=== PATIENT | male | born 1985 | race African-American/Black ===

== ENCOUNTER 2022-02-20 13:31 | Emergency (ER) | payer SELFPAY ==
[~2022-02-20] VITALS: Ht 172.7 cm; Wt 74.0 kg
[2022-02-20] MEDS ORDERED: ONDANSETRON HCL 4 MG/2 ML VIAL IVP ONE (15:15)
[2022-02-20] MEDS ORDERED: MORPHINE SULFATE 4 MG/ML SYRINGE IVP ONE (15:15)
[2022-02-20] MEDS ORDERED: ACETAMINOPHEN 500 MG TABLET PO ONE (17:15)
[2022-02-20] MEDS ORDERED: LIDOCAINE 5% TRANSDERMAL PATCH TD ONE (17:15)
[2022-02-20] MEDS ORDERED: KETOROLAC TROMETHAMINE 30 MG/ML VIAL IVP ONE (17:15)
[2022-02-20 17:39] VITALS: BP 129/95
[2022-02-20] MEDS ORDERED: OXYC-38 PO (17:49)
[2022-02-20] MEDS ORDERED: LIDO700A15 TP (17:49)
== END 2022-02-20 18:07 | disposition home or self-care (01) ==
LOC: EMS 13:46
DX: M54.50 Low back pain, unspecified (principal)
CPT/HCPCS: 99284; 72128; 96374; 96375; 72131; J1885; J2270; J2405

== ENCOUNTER 2022-02-21 19:22 | Emergency (ER) | payer SELFPAY ==
[~2022-02-21] VITALS: Ht 177.8 cm; Wt 78.3 kg
[~2022-02-21 19:22] MED LIST: LIDO700A15 TP; OXYC-38 PO
[2022-02-21] MEDS ORDERED: EPINEPHrine 1:10,000 [1 MG/10 ML] SYRINGE IVP ONE ×2 (19:24)
[2022-02-21] MEDS ORDERED: NOREPINEPHRINE 8 MG/D5%-WATER 250 ML IV ONE (20:14)
[2022-02-21 20:25] LABS: MEAN CORPUSCULAR HEMOGLOBIN 23.7 pg (26.0-34.0); MEAN CORPUSCULAR HGB CONC 29.6 G/dL (31.0-37.0); MEAN CORPUSCULAR VOLUME 80 fL (80-100); PLATELET COUNT (AUTO) 238 K/uL (150-450); RED BLOOD CELL COUNT(AUTO) 0.63 MIL/uL (4.50-5.90); RED CELL DISTRIBUTION WIDTH 18.3 % (11.5-14.5)
[2022-02-21 20:29] VITALS: BP 62/27
[2022-02-21 20:29] LABS: HEMOGLOBIN 1.5 g/dL (13.5-17.5)
[2022-02-21] MEDS ORDERED: EPINEPHrine 1:10,000 [1 MG/10 ML] SYRINGE ONE (20:32)
[2022-02-21 20:35] LABS: ANION GAP 23 mmol/L (8-16); CALCIUM, TOTAL 8.2 mg/dL (8.8-10.5); CARBON DIOXIDE 13 mmol/L (22-29); CHLORIDE 108 mmol/L (98-107); CREATININE 1.67 mg/dL (0.60-1.30); GLUCOSE,RANDOM 126 mg/dL (70-110); POTASSIUM 5.9 mmol/L (3.5-5.1); SODIUM SERUM 144 mmol/L (136-145); UREA NITROGEN, BLOOD 17 mg/dL (7-18)
[2022-02-21 20:36] LABS: GLOMERULAR FILTR. RATE CALC 57 mL/min (>60)
[2022-02-21 20:40] LABS: B-TYPE NATRIURETIC PEPTIDE 16 pg/mL (0-100)
[2022-02-21 20:48] LABS: SALICYLATE 1.8 mg/dL (2.8-20.0)
[2022-02-21 20:50] LABS: ACETAMINOPHEN 16 mcg/mL (10-30); ALANINE AMINOTRANSFERASE 1444 U/L (12-78); ALBUMIN 1.5 g/dL (3.4-5.0); ALKALINE PHOSPHATASE 46 U/L (46-116); ASPARTATE AMINOTRANSFERASE 1644 U/L (15-37); BILIRUBIN,TOTAL 0.1 mg/dL (0.1-1.0); CREATINE KINASE, TOTAL ONLY 177 U/L (39-308); TOTAL PROTEIN, SERUM 3.4 g/dL (6.4-8.2)
[2022-02-21 20:54] LABS: BAND NEUTROPHILS % (MANUAL) 1 % (0-5); EOSINOPHILS % (MANUAL) 1 % (1-6); LYMPHOCYTES % (MANUAL) 54 % (22-44); MONOCYTES % (MANUAL) 6 % (2-9); SEGMENTED NEUTROPHILS % 38 % (40-70)
[2022-02-21 20:55] LABS: PLATELET MORPHOLOGY COMMENT LARGE PLTS PRESENT
[2022-02-21 22:29] LABS: COVID AG,FIA SOURCE NASOPHARYNGEAL
== END 2022-02-22 00:45 ==
LOC: EMS 19:23
DX: I46.9 Cardiac arrest, cause unspecified (principal); D64.9 Anemia, unspecified
CPT/HCPCS: 36556; 80053; 82550; 83735; 83880; 84484; 85025; 86850; 86900; 86901; 86923; 36415; 71250; 74176; 76937; 99292; 92950; 36430; 93005; 31500; 99291; 87426; G0481; P9016; J0171; Q9967; G0480 ×2; 51702; 72192; 74150; 94002